=== PATIENT | female | born 1960 | race American Indian/Alaskan Native ===

== ENCOUNTER 2020-12-08 07:06 | Outpatient (CLI) | payer BC ==
[2020-12-08 07:25] LABS: Hematocrit 37.1 % (30.3-42.9); Mean Corpuscular HGB Conc 33 % (30-34); Mean Corpuscular Volume 88 fl (79-97); Platelet Count 167 K/mm3 (140-440); Red Blood Count 4.23 M/mm3 (3.65-5.03); Red Cell Distribution Width 14.2 % (13.2-15.2)
[2020-12-08 07:46] LABS: Alanine Aminotransferase 13 units/L (7-56); Albumin 4.1 g/dL (3.9-5); BUN/Creatinine Ratio 11; Blood Urea Nitrogen 9 mg/dL (7-17); Calcium 9.2 mg/dL (8.4-10.2); Chol/HDL Ratio 2.85 %; HDL Cholesterol 57 mg/dL (40-59); Hemolysis Index 0; LDL Cholesterol,Direct 107 mg/dL (50-130)
== END 2020-12-08 07:07 | disposition home or self-care (01) ==
LOC: LAB 07:06
PROVIDERS: ATTEND Internal Medicine
DX: Z00.01 Encounter for general adult medical examination with abnormal findings (principal)
CPT/HCPCS: 36415; 80053; 80061; 83036; 84443; 85027; 86735; 86762; 86765; 86787

== ENCOUNTER 2021-05-26 06:55 | Outpatient (CLI) | payer BC ==
--- NOTE | 2021-05-26 07:53 | XRay Report ---
CHEST 2 VIEWS INDICATION: TB SCREEN. COMPARISON: 07/30/2018 FINDINGS: Support devices: None. Heart: Within normal limits. Lungs/pleura: No acute air space or interstitial disease. No evidence for cavitating lesion or adeno clement. No pleural effusion or pneumothorax. Additional findings: None. IMPRESSION: Unremarkable chest films. No change since 07/30/2018. No chest x-ray findings to suggest tuberculosis. Signer Name: Jose Armando Verde Jr, MD Signed: 05/26/2021 7:49 AM Workstation Name: [id number]
== END 2021-05-26 06:56 | disposition home or self-care (01) ==
LOC: LAB 06:55 → XRAY 06:55
PROVIDERS: ATTEND Internal Medicine
DX: Z11.1 Encounter for screening for respiratory tuberculosis (principal)
CPT/HCPCS: 71046

== ENCOUNTER 2021-11-04 14:37 | Emergency (ER) | payer BC ==
[2021-11-04] MEDS ORDERED: IBUPROFEN 400 MG TAB PO ONE (17:13)
[2021-11-04] MEDS ORDERED: ACETAMINOPHEN 325 MG TAB PO ONE (17:13)
--- NOTE | 2021-11-04 17:14 | Emergency Department Report ---
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 She denies additional injuries and complaints. Pain is sharp and throbbing, and increases with palpation and range of motion, and it decreases with rest. Complaint: other -: Gradual, days(s) Injury: Leg: Right Type of Injury: other (Patient believes that she twisted) Severity: moderate Improves With: rest Worsens With: movement, palpation - Related Data Previous Rx's Medication Instructions Recorded Last Taken Type Acetaminophen [Non-Aspirin Extra 500 mg PO Q6HR PRN #30 tablet 11/04/21 Unknown Rx Strength] Ibuprofen [Motrin] 600 mg PO Q8H PRN #30 tablet 11/04/21 Unknown Rx Allergies Allergy/AdvReac Type Severity Reaction Status Date / Time sulfamethoxazole Allergy Severe Swelling Verified 11/04/21 14:53 [From Bactrim] erythromycin base Allergy Shortness Verified 11/04/21 14:54 of Breath metronidazole [From Flagyl] Allergy Rash Verified 11/04/21 14:53 trimethoprim [From Bactrim] Allergy Swelling Verified 11/04/21 14:52 ED Review of Systems ROS: Stated complaint: RT LEG PAIN Other details as noted in HPI Constitutional: denies: fever Eyes: denies: eye discharge ENT: denies: epistaxis Respiratory: denies: cough Cardiovascular: denies: chest pain Gastrointestinal: denies: abdominal pain Musculoskeletal: arthralgia, myalgia Neurological: denies: weakness ED Past Medical Hx - Past Medical History Previous Medical History?: No - Surgical History Past Surgical History?: Yes Additional Surgical History: abd hernia, csection x 3, - Medications Home Medications: Home Medications Medication Instructions Recorded Confirmed Last Taken Type Acetaminophen [Non-Aspirin Extra 500 mg PO Q6HR PRN #30 tablet 11/04/21 Unknown Rx Strength] Ibuprofen [Motrin] 600 mg PO Q8H PRN #30 tablet 11/04/21 Unknown Rx ED Physical Exam - General Limitations: No Limitations General appearance: alert, in no apparent distress - Head Head exam: Present: atraumatic, normocephalic - Eye Eye exam: Present: normal appearance, EOMI. Absent: nystagmus - ENT ENT exam: Present: normal exam, normal orophraynx, mucous membranes moist, normal external ear exam - Neck Neck exam: Present: normal inspection, full ROM. Absent: tenderness, meningismus - Respiratory Respiratory exam: Present: normal lung sounds bilaterally. Absent: respiratory distress, wheezes, rales, rhonchi, stridor, decreased breath sounds - Cardiovascular Cardiovascular Exam: Present: regular rate, normal rhythm, normal heart sounds. Absent: bradycardia, tachycardia, irregular rhythm, systolic murmur, diastolic murmur, rubs, gallop - GI/Abdominal GI/Abdominal exam: Present: soft. Absent: distended, tenderness, guarding, rebound, rigid, pulsatile mass - Extremities Exam Extremities exam: Present: normal inspection, full ROM, tenderness (There is point tenderness to the right anterior proximal tibial musculature. The compartments are soft. There is no pain with passive range of motion of the toe or ankle or knee.), other (2+ pulses noted in the bilateral upper and lower extremities. There is no palpable cord. negative Homans sign. Muscular compartments are soft. The pelvis is stable.). Absent: pedal edema, calf tenderness - Back Exam Back exam: Present: normal inspection. Absent: tenderness, CVA tenderness (R), CVA tenderness (L), paraspinal tenderness, vertebral tenderness - Neurological Exam Neurological exam: Present: alert, oriented X3, normal gait, other (No facial droop. Tongue midline. Extraocular movements intact bilaterally. Facial sensation intact to light touch in V1, V2, V3 distribution bilaterally. 5 and a 5 strength in 4 extremities. Sensation intact to light touch in 4 extremities.). Absent: motor sensory deficit - Psychiatric Psychiatric exam: Present: normal affect, normal mood - Skin Skin exam: Present: warm, dry, intact, normal color. Absent: rash ED Course Vital Signs 11/04/21 14:54 Temperature 98.6 F Pulse Rate 74 Respiratory 18 Rate Blood Pressure 108/65 [Right] O2 Sat by Pulse 99 Oximetry ED Lower Extremity MDM - Lab Data Vital Signs 11/04/21 14:54 Temperature 98.6 F Pulse Rate 74 Respiratory 18 Rate Blood Pressure 108/65 [Right] O2 Sat by Pulse 99 Oximetry - Medical Decision Making Differential diagnosis, including the not limited to: Sprain, strain, shinsplints Assessment and plan: 61-year-old female with pain in her right anterior tibialis muscle, after straining/twisting mechanism. Knee is nontender. She is ambulatory with a steady gait, and minimal limp. Rest, ice, compression, elevation, Tylenol, Motrin, weightbearing as tolerated, supportive footwear, conservative management, and outpatient follow-up. Return precautions reviewed. Critical care attestation.: If time is entered above; I have spent that time in minutes in the direct care of this critically ill patient, excluding procedure time. ED Disposition Clinical Impression: Batista splint Disposition: HOME / SELF CARE / HOMELESS Is pt being admited?: No Does the pt Need Aspirin: No Condition: Good Instructions: Batista Splints Additional Instructions: Alternate ice packs and heat packs as needed for physical pain. Take the prescribed pain medication as needed and directed. Continue to wear supportive footwear. Please follow-up with your primary care doctor within the next 2 weeks. Advance ambulation and physical activity as tolerated. Please return to the emergency room right away with new pain, worsened pain, migration of pain, projectile vomiting, change in mental status, confusion, inability tolerate liquid feeds, new, worsened or different symptoms not present on the initial emergency room evaluation Referrals: [facility] [Provider Group] - 3-5 Days [facility] [Outside] - 3-5 Days Forms: Work/School Release Form(ED)
[2021-11-04 19:50] VITALS: BP 128/77
== END 2021-11-04 19:51 | disposition home or self-care (01) ==
LOC: ED 14:37
DX: M79.604 Pain in right leg (principal); Z79.899 Other long term (current) drug therapy
CPT/HCPCS: 99282

== ENCOUNTER 2021-11-10 10:42 | Outpatient (CLI) | payer BC ==
--- NOTE | 2021-11-10 13:23 | XRay Report ---
Right knee 3 views INDICATION: Right foot pain FINDINGS: Alignment appears normal. Mild tricompartmental degenerative change. Trace joint effusion. No acute findings. Signer Name: Phani Aleman MD Signed: 11/10/2021 1:19 PM Workstation Name: [id number]
--- NOTE | 2021-11-10 13:35 | XRay Report ---
RIGHT LOWER LEG 2 VIEWS INDICATION / CLINICAL INFORMATION: Right lower leg pain. COMPARISON: None available. FINDINGS: BONES / JOINT(S): No acute fracture or subluxation. No significant arthritis. SOFT TISSUES: No significant abnormality. ADDITIONAL FINDINGS: None. IMPRESSION: Negative study. Signer Name: Everett Khan MD Signed: 11/10/2021 1:30 PM Workstation Name: [id number]
== END 2021-11-10 10:43 | disposition home or self-care (01) ==
LOC: XRAY 10:42
PROVIDERS: ATTEND Internal Medicine
DX: M17.11 Unilateral primary osteoarthritis, right knee (principal); M79.604 Pain in right leg; Z88.8 Allergy status to other drugs, medicaments and biological substances
CPT/HCPCS: 36415; 84550